=== PATIENT | female | born 1945 | race Caucasian/White ===

== ENCOUNTER 2019-12-12 14:29 | Emergency (ER) | payer MEDICARE, BC ==
[~2019-12-12] VITALS: Ht 154.9 cm; Wt 69.5 kg
[2019-12-12 14:34] VITALS: Ht 154.9 cm; Wt 69.5 kg
[2019-12-12] MEDS ORDERED: ASPIRIN81 MG PO (14:36)
[2019-12-12] MEDS ORDERED: XANAX0.5 MG PO (14:36)
[2019-12-12] MEDS ORDERED: NORVASC5 MG PO (14:36)
[2019-12-12] MEDS ORDERED: HYDROCHLOROTHIA25 MG PO (14:37)
[2019-12-12] MEDS ORDERED: DONEPEZIL HCL10 MG PO (14:37)
[2019-12-12] MEDS ORDERED: TENORMIN100 MG PO (14:37)
[2019-12-12] MEDS ORDERED: MOBIC7.5 MG PO (14:38)
[2019-12-12] MEDS ORDERED: MULTI-DAY VITAM1 TAB PO (14:38)
[2019-12-12] MEDS ORDERED: AVAPRO300 MG PO (14:38)
[2019-12-12] MEDS ORDERED: K-DUR20 MEQ PO (14:39)
[2019-12-12] MEDS ORDERED: LOMOTIL 2.5-0.1 EAC1 PO (17:59)
[2019-12-12 18:34] VITALS: BP 126/54
== END 2019-12-12 18:34 | disposition home or self-care (01) ==
LOC: D.ER 14:29
DX: R55 Syncope and collapse (principal); E86.0 Dehydration; R19.7 Diarrhea, unspecified; E87.6 Hypokalemia; I10 Essential (primary) hypertension

== ENCOUNTER 2020-03-01 16:26 | Emergency (ER) | payer MEDICARE, BC ==
[~2020-03-01] VITALS: Ht 154.9 cm; Wt 71.7 kg
[~2020-03-01 16:26] MED LIST: ASPIRIN81 MG PO; AVAPRO300 MG PO; DONEPEZIL HCL10 MG PO; HYDROCHLOROTHIA25 MG PO; K-DUR20 MEQ PO; LOMOTIL 2.5-0.1 EAC1 PO; MOBIC7.5 MG PO; MULTI-DAY VITAM1 TAB PO; NORVASC5 MG PO; TENORMIN100 MG PO; XANAX0.5 MG PO
[2020-03-01 16:31] VITALS: Ht 154.9 cm; Wt 71.7 kg
[2020-03-01 17:04] LABS: BASOPHILS 0.5 % (0-2); EOSINOPHILS 1.3 % (0-7); HEMATOCRIT 38.5 % (36.0-48.0); HEMOGLOBIN 13.3 g/dL (12-16); IMMATURE GRANULOCYTES 0.5 % (0-5); LYMPHOCYTES 23.6 % (15-50); MCH 31.4 pg (26.0-34.0); MCHC 34.5 g/dL (31.0-37.0); MCV 90.8 fL (80.0-100.0); MEAN PLATELET VOLUME 10.9 fL (7.4-10.4); MONOCYTES 13.9 % (2-11); NEUTROPHILS 60.2 % (40-80); RBC 4.24 10x6/uL (4.00-5.40); RDW 12.6 % (11.5-14.5); WBC 7.5 10x3/uL (4.8-10.8)
[2020-03-01 17:05] LABS: PLATELET COUNT 238 10x3/uL (130-400)
[2020-03-01 17:15] LABS: APTT 26.3 SECONDS (22.8-39.4); INR 0.94 (0.85-1.17); PROTIME 12.5 SECONDS (11.6-15.0)
[2020-03-01 17:28] LABS: CALC OSMOLALITY 269 mosm/kg (275-300); CALCIUM 9.6 mg/dL (8.5-10.1); CARBON DIOXIDE 32.2 mmol/L (21.0-32.0); CHLORIDE - SERUM 96 mmol/L (98-107); GLUCOSE 99 mg/dL (74-106); POTASSIUM - SERUM 3.2 mmol/L (3.5-5.1); SODIUM 134 mmol/L (136-145); UREA NITROGEN 19 mg/dL (7-18); eGFR NON AFRICAN AMERICAN 58 mL/min (90-120)
[2020-03-01 17:45] LABS: ALBUMIN 4.3 g/dL (3.4-5.0); ALKALINE PHOSPHATASE 72 U/L (30-120); ALT (SGPT) 27 U/L (10-68); BILIRUBIN - TOTAL 1.27 mg/dL (0.2-1.3); CKMB 2.2 U/L (0.0-3.6); CREATINE KINASE 119 UL (21-215); MAGNESIUM - SERUM 1.8 mg/dL (1.8-2.4); PROTEIN - SERUM 7.5 g/dL (6.4-8.2)
[2020-03-01 17:46] LABS: TROPONIN-I < 0.017 ng/mL (0.000-0.060)
[2020-03-01 22:40] VITALS: BP 113/76
== END 2020-03-01 22:40 | disposition other institution (70) ==
LOC: D.ER 16:26
PROVIDERS: Family Medicine
DX: R07.9 Chest pain, unspecified (principal); H53.8 Other visual disturbances; J18.9 Pneumonia, unspecified organism; I10 Essential (primary) hypertension; R42 Dizziness and giddiness